=== PATIENT | female | born 1990 | race Caucasian/White ===

== ENCOUNTER → 2016-10-04 | Outpatient (CLI) | payer OTHER | LOC: CIMAGING 12:01 | PROVIDERS: ATTEND Family Medicine | DX: S62.637A Displaced fracture of distal phalanx of left little finger, initial encounter for closed fracture (principal) | CPT/HCPCS: 73140-PO ==

== ENCOUNTER 2017-04-18 20:23 | Observation (INO) | payer OTHER ==
--- NOTE | 2017-04-18 20:37 | EDPHY ---
H & P Time Seen by Provider: 04/18/17 20:33 HPI/ROS: 27-year-old female presents complaining of lower abdominal pain that began sometime last night, just kind of achy in nature. As the day progessed she had increasing pain of entire lower abdomen, and worse on the right. She complains of approx one week of daily diarrhea, watery. No prior abdominal surgery. She does have a history of ovarian cyst, she states this does not feel like the time she had a ruptured ovarian cyst. Review of systems As per HPI General no fever no chills no weakness HEENT no eye pain no eye discharge. No eye redness, no sore throat Respiratory no cough, no shortness of breath Cardiac no chest pain, no peripheral edema GI positive abdominal pain, pos diarrhea, no constipation,pos nausea, no vomiting no flank pain, no hematuria, no dysuria Musculoskeletal no myalgias, no joint pain Heme no easy bruising, no easy bleeding Endo no polyuria, no polydipsia Skin no rashes, no pruritus Neuro no syncope, no dizziness, no headaches Psych is no suicidal ideation, no homicidal ideation Past Medical/Surgical History: ovarian cysts Social History: alcohol socially no drug use Smoking Status: Current some day smoker Physical Exam: 27 yo F alert and oriented and in mod distress secondary to lower abd pain at, nc anicteric, eomi neck supple lungs cta bilat heart rapid rr abd slightly distended, bs quiet, diffuse lower abdominal ttp with guarding, rebound ext no cce skin no rash Constitutional: Initial Vital Signs Temperature (C) 36.5 C 04/18/17 20:34 Heart Rate 84 04/18/17 20:34 Respiratory Rate 18 04/18/17 20:34 Blood Pressure 118/78 04/18/17 20:34 O2 Sat (%) 99 04/18/17 20:34 O2 Delivery Mode Room Air Allergies/Adverse Reactions: No Known Allergies Allergy (Verified 04/18/17 20:33) Home Medications: Medication Instructions Recorded Adderall 07/18/09 Medical Decision Making - Diagnostics Imaging Results: Imaging Impressions Abdomen CT 04/18/17 21:08 Impression: 1. Mild thickening of the appendix, and a low-grade appendicitis is not excluded. 2. Right lower quadrant mesenteric adenitis. 3. Localized ileus versus enteritis in the lower central abdomen and pelvis with some associated free fluid. 4. Mild hepatomegaly. 5. There appears to be a 3.5 cm mildly complex right ovarian cyst, as well as a 1.5 cm left ovarian follicular cyst. This could be further evaluated with sonography, as clinically directed. Findings were discussed with Andreia Jason MD at 21:50, on 04/18/2017. ED Course/Re-evaluation: Pt seen and evaluated for acute lower abdominal pain. Labs elevated WBC 16 lactate nml ua nml ct abd with multiple findings thickened small bowel c/w enteritis scattered areas of free fluid borderline enlarged appendix 7.1 to 8.3 mm mesenteric nodes right ovarian cyst 3.5 cm us pelvis ordered to further evaluate right ovarian cyst, to rule out torsion Endorsed to Dr Wen at shift change pending Us results and transfer to [facility] to be admitted to hospitalist and to be seen by the surgery team. Discussed case with Dr Villalta, who requested admit to hospitalist and she will see patient in consult. Discussed case with the hospitalist Dr Guevara, who agreed to admit patient and will consult surgery. Imp Enteritis R/o appendicitis Plan Admit to [facility] - Data Points Laboratory Results: Laboratory Results 04/18/17 20:43 04/18/17 20:43 04/18/17 04/18/17 04/18/17 22:35 21:55 20:45 WBC RBC Hgb Hct MCV MCH MCHC RDW Plt Count MPV Neut % (Auto) Lymph % (Auto) [place] % (Auto) Eos % (Auto) Baso % (Auto) Nucleat RBC Rel Count Absolute Neuts (auto) Absolute Lymphs (auto) Absolute Monos (auto) Absolute Eos (auto) Absolute Basos (auto) Absolute Nucleated RBC Immature Gran % Immature Gran # VBG Lactic Acid 0.8 mmol/L mmol/L (0.7-2.1) Sodium Potassium Chloride Carbon Dioxide Anion Gap BUN Creatinine Estimated GFR Glucose Calcium Total Bilirubin AST ALT Alkaline Phosphatase Total Protein Albumin Lipase Beta HCG, Qual NEGATIVE Urine Color YELLOW Urine Appearance CLEAR Urine pH 6.0 (5.0-7.5) Ur Specific [place] 1.020 (1.002-1.030) Urine Protein NEGATIVE (NEGATIVE) Urine Ketones 1+ H (NEGATIVE) Urine Blood NEGATIVE (NEGATIVE) Urine Nitrate NEGATIVE (NEGATIVE) Urine Bilirubin NEGATIVE (NEGATIVE) Urine Urobilinogen 0.2 EU EU (0.2-1.0) Ur Leukocyte Esterase NEGATIVE (NEGATIVE) Urine Glucose NEGATIVE (NEGATIVE) 04/18/17 04/18/17 20:43 20:43 WBC 16.63 10^3/uL H 10^3/uL (3.80-9.50) RBC 4.80 10^6/uL 10^6/uL (4.18-5.33) Hgb 15.9 g/dL g/dL (12.6-16.3) Hct 44.4 % % (38.0-47.0) MCV 92.5 fL fL (81.5-99.8) MCH 33.1 pg pg (27.9-34.1) MCHC 35.8 g/dL g/dL (32.4-36.7) RDW 12.3 % % (11.5-15.2) Plt Count 298 10^3/uL 10^3/uL (150-400) MPV 8.4 fL L fL (8.7-11.7) Neut % (Auto) 83.0 % H % (39.3-74.2) Lymph % (Auto) 10.8 % L % (15.0-45.0) Carl[place] % (Auto) 4.9 % % (4.5-13.0) Eos % (Auto) 0.8 % % (0.6-7.6) Baso % (Auto) 0.2 % L % (0.3-1.7) Nucleat RBC Rel Count 0.0 % % (0.0-0.2) Absolute Neuts (auto) 13.81 10^3/uL H 10^3/uL (1.70-6.50) Absolute Lymphs (auto) 1.80 10^3/uL 10^3/uL (1.00-3.00) Absolute Monos (auto) 0.81 10^3/uL H 10^3/uL (0.30-0.80) Absolute Eos (auto) 0.13 10^3/uL 10^3/uL (0.03-0.40) Absolute Basos (auto) 0.03 10^3/uL 10^3/uL (0.02-0.10) Absolute Nucleated RBC 0.00 10^3/uL 10^3/uL (0-0.01) Immature Gran % 0.3 % % (0.0-1.1) Immature Gran # 0.05 10^3/uL 10^3/uL (0.00-0.10) VBG Lactic Acid Sodium 140 mEq/L mEq/L (134-144) Potassium 3.7 mEq/L mEq/L (3.5-5.2) Chloride 100 mEq/L mEq/L (97-110) Carbon Dioxide 24 mEq/l mEq/l (22-31) Anion Gap 16 mEq/L mEq/L (8-16) BUN 12 mg/dL mg/dL (7-23) Creatinine 0.8 mg/dL mg/dL (0.6-1.0) Estimated GFR > 60 Glucose 104 mg/dL H mg/dL (70-100) Calcium 9.7 mg/dL mg/dL (8.5-10.4) Total Bilirubin 1.7 mg/dL H mg/dL (0.1-1.4) AST 23 IU/L IU/L (14-46) ALT 36 IU/L IU/L (9-52) Alkaline Phosphatase 81 IU/L IU/L (38-126) Total Protein 7.0 g/dL g/dL (6.3-8.2) Albumin 4.4 g/dL g/dL (3.5-5.0) Lipase 39 IU/L IU/L (23-300) Beta HCG, Qual Urine Color Urine Appearance Urine pH Ur Specific [place] Urine Protein Urine Ketones Urine Blood Urine Nitrate Urine Bilirubin Urine Urobilinogen Ur Leukocyte Esterase Urine Glucose Medications Given: Discontinued Medications Hydromorphone HCl (Dilaudid) 1 mg IVP EDNOW ONE Stop: 04/18/17 21:54 Last Admin: 04/18/17 23:07 Dose: Not Given Hydromorphone HCl (Dilaudid) 1 mg IVP EDNOW ONE Stop: 04/18/17 21:54 Last Admin: 04/18/17 22:00 Dose: 1 mg Sodium Chloride (Ns) 1,000 mls @ 0 mls/hr IV ONCE ONE PRN Reason: Wide Open Stop: 04/18/17 20:53 Last Admin: 04/18/17 20:58 Dose: 1,000 mls Morphine Sulfate (Morphine) 4 mg IVP EDNOW ONE Stop: 04/18/17 20:53 Last Admin: 04/18/17 20:58 Dose: 4 mg Ondansetron HCl (Zofran) 4 mg IVP EDNOW ONE Stop: 04/18/17 20:53 Last Admin: 04/18/17 20:58 Dose: 4 mg Departure - Departure Referrals: Rafia Hickman MD [Primary Care Provider] - As per Instructions
[2017-04-18 20:47] LABS: % IMMATURE GRANULYOCYTES 0.3 % (0.0-1.1); ABSOLUTE IMMATURE GRANULOCYTES 0.05 10^3/uL (0.00-0.10); ADD DIFF? NO; ADD MORPH? NO; ADD SCAN? NO; ATYPICAL LYMPHOCYTE FLAG 0 (0-99); FRAGMENT RBC FLAG 0 (0-99); HEMATOCRIT 44.4 % (38.0-47.0); HEMOGLOBIN 15.9 g/dL (12.6-16.3); LEFT SHIFT FLG 0 (0-99); LIPEMIA HEMOLYSIS FLAG 90 (0-99); MEAN CELL HEMOGLOBIN 33.1 pg (27.9-34.1); MEAN CELL HEMOGLOBIN CONCENTR. 35.8 g/dL (32.4-36.7); MEAN CELL VOLUME 92.5 fL (81.5-99.8); MEAN PLATELET VOLUME 8.4 fL (8.7-11.7); PLATELET CLUMPS FLAG 0 (0-99); PLATELET COUNT 298 10^3/uL (150-400); RED CELL DISTRIBUTION WIDTH 12.3 % (11.5-15.2)
[2017-04-18] MEDS ORDERED: NS 1,000 ML IV ONE (20:52)
[2017-04-18] MEDS ORDERED: ONDANSETRON 4 MG/2 ML VIAL IVP ONE (20:52)
[2017-04-18 21:01] LABS: ALANINE AMINOTRANSFERASE 36 IU/L (9-52); ALBUMIN 4.4 g/dL (3.5-5.0); ALKALINE PHOSPHATASE 81 IU/L (38-126); ANION GAP 16 mEq/L (8-16); ASPARTATE AMINOTRANSFERASE 23 IU/L (14-46); BILIRUBIN,TOTAL 1.7 mg/dL (0.1-1.4); CALCIUM 9.7 mg/dL (8.5-10.4); CARBON DIOXIDE 24 mEq/l (22-31); CHLORIDE 100 mEq/L (97-110); CREATININE 0.8 mg/dL (0.6-1.0); GLOMERULAR FILTRATION RATE > 60; GLUCOSE 104 mg/dL (70-100); POTASSIUM 3.7 mEq/L (3.5-5.2); SODIUM 140 mEq/L (134-144)
[2017-04-18] MEDS ORDERED: IOPAMIDOL (ISOVUE-300) 100 ML BTL ONE (21:17)
[2017-04-18] MEDS ORDERED: HYDROmorphONE/DILAUDID 1 MG/ML INJ IVP ONE ×2 (21:53)
[2017-04-18 22:03] LABS: COLOR YELLOW; LEUKOCYTE ESTERASE,URINE NEGATIVE (NEGATIVE); NITRITE,URINE NEGATIVE (NEGATIVE)
[2017-04-18] MEDS ORDERED: ONDANSETRON DISINTEGRATING 4 MG TAB PO PRN (23:15)
[2017-04-18] MEDS ORDERED: ONDANSETRON 4 MG/2 ML VIAL IVP PRN (23:15)
[2017-04-18] MEDS ORDERED: ACETAMINOPHEN 325 MG TAB PO PRN (23:15)
[2017-04-18] MEDS ORDERED: KETOROLAC 30 MG/1 ML SDV IVP ONE (23:24)
--- NOTE | 2017-04-19 00:55 | PDGENHP ---
History and Physical - Chief Complaint Abdominal pain - History of Present Illness 27 yo F presents with one day of abdominal pain. Patient noted abdominal pain in her RLQ this morning. It went away in the middle of the day but then returned in greater intensity and she went to the ED for evaluation. She has prior history of ovarian cysts but she feels this pain is different and more intense. She also noted subjective fevers and chills today. She has had one loose stool daily for the last few days but denies any blood or melena. History Information - Allergies/Home Medication List Allergies/Adverse Reactions: No Known Allergies Allergy (Verified 04/18/17 20:33) Home Medications: Adderall 07/18/09 [Last Taken 07/18/09 08:00 30 MG ER] I have personally reviewed and updated: family history, medical history - Past Medical History Additional medical history: ADHD - Family History Additional family history: Denies family history - Social History Smoking Status: Current some day smoker Review of Systems Review of Systems: ROS: 10pt was reviewed & negative except for what was stated in HPI & below Physical Exam Physical Exam: Temp Pulse Resp BP Pulse Ox 36.8 C 82 18 111/68 97 04/19/17 00:36 04/19/17 00:36 04/19/17 00:36 04/19/17 00:36 04/19/17 00:36 Constitutional: appears nourished, uncomfortable Eyes: PERRL, EOMI Ears, Nose, Mouth, Throat: moist mucous membranes, no oral mucosal ulcers Cardiovascular: regular rate and rhythym, no murmur, rub, or gallop Respiratory: no respiratory distress, clear to auscultation Gastrointestinal: tenderness (RLQ), No guarding, No rebound, No distension Skin: warm, normal color Musculoskeletal: full muscle strength, no muscle tenderness Neurologic: AAOx3, CN II-XII Intact Psychiatric: interacting appropriately, not anxious Lab Data & Imaging Review 04/18/17 20:43 04/18/17 20:43 WBC 16.63 10^3/uL (3.80-9.50) H 04/18/17 20:43 RBC 4.80 10^6/uL (4.18-5.33) 04/18/17 20:43 Hgb 15.9 g/dL (12.6-16.3) 04/18/17 20:43 Hct 44.4 % (38.0-47.0) 04/18/17 20:43 MCV 92.5 fL (81.5-99.8) 04/18/17 20:43 MCH 33.1 pg (27.9-34.1) 04/18/17 20:43 MCHC 35.8 g/dL (32.4-36.7) 04/18/17 20:43 RDW 12.3 % (11.5-15.2) 04/18/17 20:43 Plt Count 298 10^3/uL (150-400) 04/18/17 20:43 MPV 8.4 fL (8.7-11.7) L 04/18/17 20:43 Neut % (Auto) 83.0 % (39.3-74.2) H 04/18/17 20:43 Lymph % (Auto) 10.8 % (15.0-45.0) L 04/18/17 20:43 [place] % (Auto) 4.9 % (4.5-13.0) 04/18/17 20:43 Eos % (Auto) 0.8 % (0.6-7.6) 04/18/17 20:43 Baso % (Auto) 0.2 % (0.3-1.7) L 04/18/17 20:43 Nucleat RBC Rel Count 0.0 % (0.0-0.2) 04/18/17 20:43 Absolute Neuts (auto) 13.81 10^3/uL (1.70-6.50) H 04/18/17 20:43 Absolute Lymphs (auto) 1.80 10^3/uL (1.00-3.00) 04/18/17 20:43 Absolute Monos (auto) 0.81 10^3/uL (0.30-0.80) H 04/18/17 20:43 Absolute Eos (auto) 0.13 10^3/uL (0.03-0.40) 04/18/17 20:43 Absolute Basos (auto) 0.03 10^3/uL (0.02-0.10) 04/18/17 20:43 Absolute Nucleated RBC 0.00 10^3/uL (0-0.01) 04/18/17 20:43 Immature Gran % 0.3 % (0.0-1.1) 04/18/17 20:43 Immature Gran # 0.05 10^3/uL (0.00-0.10) 04/18/17 20:43 VBG Lactic Acid 0.8 mmol/L (0.7-2.1) 04/18/17 22:35 Sodium 140 mEq/L (134-144) 04/18/17 20:43 Potassium 3.7 mEq/L (3.5-5.2) 04/18/17 20:43 Chloride 100 mEq/L (97-110) 04/18/17 20:43 Carbon Dioxide 24 mEq/l (22-31) 04/18/17 20:43 Anion Gap 16 mEq/L (8-16) 04/18/17 20:43 BUN 12 mg/dL (7-23) 04/18/17 20:43 Creatinine 0.8 mg/dL (0.6-1.0) 04/18/17 20:43 Estimated GFR > 60 04/18/17 20:43 Glucose 104 mg/dL (70-100) H 04/18/17 20:43 Calcium 9.7 mg/dL (8.5-10.4) 04/18/17 20:43 Total Bilirubin 1.7 mg/dL (0.1-1.4) H 04/18/17 20:43 AST 23 IU/L (14-46) 04/18/17 20:43 ALT 36 IU/L (9-52) 04/18/17 20:43 Alkaline Phosphatase 81 IU/L (38-126) 04/18/17 20:43 Total Protein 7.0 g/dL (6.3-8.2) 04/18/17 20:43 Albumin 4.4 g/dL (3.5-5.0) 04/18/17 20:43 Lipase 39 IU/L (23-300) 04/18/17 20:43 Beta HCG, Qual NEGATIVE 04/18/17 20:45 Urine Color YELLOW 04/18/17 21:55 Urine Appearance CLEAR 04/18/17 21:55 Urine pH 6.0 (5.0-7.5) 04/18/17 21:55 Ur Specific [place] 1.020 (1.002-1.030) 04/18/17 21:55 Urine Protein NEGATIVE (NEGATIVE) 04/18/17 21:55 Urine Ketones 1+ (NEGATIVE) H 04/18/17 21:55 Urine Blood NEGATIVE (NEGATIVE) 04/18/17 21:55 Urine Nitrate NEGATIVE (NEGATIVE) 04/18/17 21:55 Urine Bilirubin NEGATIVE (NEGATIVE) 04/18/17 21:55 Urine Urobilinogen 0.2 EU (0.2-1.0) 04/18/17 21:55 Ur Leukocyte Esterase NEGATIVE (NEGATIVE) 04/18/17 21:55 Urine Glucose NEGATIVE (NEGATIVE) 04/18/17 21:55 Imaging Review: CT with possible appendicitis, RLQ mesenteric adenitis, and possible lower abdominal enteritis. Pelvic U/S showing R-sided hemorrhagic cysts and associated free fluid. Assessment & Plan Assessment: 27 yo F presents with abdominal pain. Plan: 1. Abdominal pain - Present x1 day, associated with subjective fevers and chills , and worst in RLQ. Differential for this includes appendicitis vs. ovarian cysts vs. enteritis. She is having loose stools but only once daily. - Maintain NPO, mIVF, pain control - Surgery service consulted for consideration of appendicitis - Will treat conservatively without antibiotics currently unless surgical service requests otherwise Diet - NPO Code - Full Ppx - Low risk Dispo - Admit to observation status
[2017-04-19] MEDS: D5W 1/2 NS 1,000 ML IV SCH ×2 (01:03→10:22)
[2017-04-19 03:28] VITALS: RESP 16
[2017-04-19 04:54] LABS: % IMMATURE GRANULYOCYTES 0.5 % (0.0-1.1); ABSOLUTE IMMATURE GRANULOCYTES 0.07 10^3/uL (0.00-0.10); ADD DIFF? NO; ADD MORPH? NO; ADD SCAN? NO; ATYPICAL LYMPHOCYTE FLAG 0 (0-99); FRAGMENT RBC FLAG 0 (0-99); HEMATOCRIT 37.7 % (38.0-47.0); HEMOGLOBIN 13.5 g/dL (12.6-16.3); LEFT SHIFT FLG 10 (0-99); LIPEMIA HEMOLYSIS FLAG 90 (0-99); MEAN CELL HEMOGLOBIN 33.6 pg (27.9-34.1); MEAN CELL HEMOGLOBIN CONCENTR. 35.8 g/dL (32.4-36.7); MEAN CELL VOLUME 93.8 fL (81.5-99.8); MEAN PLATELET VOLUME 8.6 fL (8.7-11.7); PLATELET CLUMPS FLAG 0 (0-99); PLATELET COUNT 234 10^3/uL (150-400); RED BLOOD CELL COUNT 4.02 10^6/uL (4.18-5.33); RED CELL DISTRIBUTION WIDTH 12.3 % (11.5-15.2)
[2017-04-19 05:17] LABS: ANION GAP 7 mEq/L (8-16); CALCIUM 8.6 mg/dL (8.5-10.4); CARBON DIOXIDE 26 mEq/l (22-31); CHLORIDE 104 mEq/L (97-110); CREATININE 0.7 mg/dL (0.6-1.0); GLOMERULAR FILTRATION RATE > 60; GLUCOSE 119 mg/dL (70-100); POTASSIUM 4.5 mEq/L (3.5-5.2); SODIUM 137 mEq/L (134-144)
--- NOTE | 2017-04-19 08:12 | GCON ---
[f rep st] CONSULTATION DATE OF CONSULTATION: 04/19/2017 CHIEF COMPLAINT: Right lower quadrant pain. HISTORY OF PRESENT ILLNESS: Ian is a 27-year-old woman who had vague symptoms of not feeling well 4 days prior to admission. It then escalated on 04/18, achy nature. It then became worse on the rig ht. She has had 1 week of watery diarrhea. PAST MEDICAL HISTORY: Ovarian cyst. PAST SURGICAL HISTORY: None. SOCIAL HISTORY: She does not use drugs. She does use tobacco products and she does drink alcohol so cially. REVIEW OF SYSTEMS: 10-point review of systems negative except per HPI. FAMILY HISTORY: Her sister was thought to have appendicitis but then realized it was due to Strep. PHYSICAL EXAMINATION: VITALS: Reviewed. She is afebrile. GENERAL: Pleasant, well-nourished, well- groomed woman, lying on bed. Family at bedside. HEENT: Normocephalic. No gross hearing deficits. Mucous membranes moist. Pupils equal and round. No scleral icterus. LUNGS: Clear to auscultation bilaterally. No increased work of breathing. CARDIAC: Regular rate. ABDOMEN: Slight distention. Bowel sounds are present. She is tender focally in the lower right quadrant. She does have a posi tive Rovsing sign. SKIN: Warm and dry. PSYCHIATRIC: Mood and affect normal. NEUROLOGIC: Grossly i ntact. LABORATORY RESULTS: Her white count at urgent care was 16.63 with a differential of 83 and today is 15.27 with 87.6% neutrophils. I personally reviewed her CT scan and can visualize the appendix. The re are no secondary appendiceal changes. It is slightly enlarged. She also has a ruptured ovarian c yst and mesenteric adenitis. She subsequently had a pelvic ultrasound obtained which showed a couple of hemorrhagic cystic structures associated with the right ovary and the left ovary is smaller. Free fluid in the cul-de-sac. IMPRESSION/PLAN: Ian Bob is a 27-year-old with history of 1 week watery diarrhea, right lower quadrant pain. Her CT scan is a bit difficult to interpret as the appendix is slightly enlarged, sh e has associated mesenteric adenitis, some thickening of the bowel and the ovarian cyst. All of thes e things could be contributing to her abdominal pain. I am concerned that her white count is still e levated. However, I do not think that her appendix is solely responsible for her abdominal pain. It is also interesting that she has thickening of the mesenteric fat on the left pericolic gutter. She also has some obvious lymph nodes in the right lower quadrant. We discussed repeat ultrasound to se e if the appendix is enlarging. We discussed watching and we also briefly discussed going to the ope rating room. I do not feel like there was enough evidence to go to the operating room right now, how ever, this is still within the differential. Please do not hesitate to reach out to me if she would like to proceed with operating room. /[id number]/MODL
--- NOTE | 2017-04-19 11:02 | ASMTCASEMG ---
Living Arrangements What is your living Answers: Alone arrangement? Who do you live with? Type Of Residence What kind of residence do Answers: Apartment you live in? Discharge Plan Comments Coordination Status Comments Notes: Pt is a 27 y/o female admitted for low abdominal pain. Surgery has been consulted. Pt will most likely d/c independent without any needs when medically stable. CM available for d/c needs. Date Signed: 04/19/2017 11:02 AM Electronically Signed By:CARMEN Wilks
[2017-04-19] MEDS: ADDERALL 20 MG TAB PO SCH (11:04)
[2017-04-19] MEDS: KETOROLAC 15 MG/1 ML SDV IVP SCH ×2 (12:48→17:24)
--- NOTE | 2017-04-19 13:03 | HOSPPROG ---
Hospitalist Progress Note Assessment/Plan: 27 yo F presents with abdominal pain. D/W Dr Villalta. Plan: 1. Abdominal pain - Present x1 day, associated with subjective fevers and chills, and worst in RLQ. unclear etiol was NPO hungry now, regualr diet mIVF, pain control D/W Surgery Will treat conservatively without antibiotics currently unless surgical service requests otherwise repeat US ordered reviewed with Dr Villalta cont conservative care Diet - regular Code - Full Ppx - Low risk Dispo - Admit to observation status >35 min spent in care and coordination Subjective: Still having some abd pain. No diarrhea. Objective: Vital Signs Temp Pulse Resp BP Pulse Ox 36.8 C 92 16 102/59 L 97 04/19/17 11:07 04/19/17 11:07 04/19/17 11:07 04/19/17 11:07 04/19/17 11:07 Laboratory Results 04/19/17 04:25 04/19/17 04:25 04/18/17 04/19/17 04/20/17 05:59 05:59 05:59 Intake Total 1000 Balance 1000 - Physical Exam Constitutional: appears nourished, uncomfortable Eyes: PERRL, anicteric sclera, EOMI Ears, Nose, Mouth, Throat: moist mucous membranes, hearing normal, ears appear normal Cardiovascular: regular rate and rhythym, No JVD, No edema Respiratory: no respiratory distress, no rales or rhonchi, reduced air movement Gastrointestinal: normoactive bowel sounds, tenderness, No ascites, No guarding Skin: warm, normal color, No erythema Musculoskeletal: normal joint ROM, no joint effusions, generalized weakness Neurologic: AAOx3 Psychiatric: interacting appropriately, not anxious, not encephalopathic, thought process linear ICD10 Worksheet Patient Problems: Problems Problem Status Onset Abdominal pain Acute - ICD10 Problem Qualifiers (1) Abdominal pain Qualifiers: Abdominal location: generalized Qualified Code(s): R10.84 - Generalized abdominal pain
[2017-04-19] MEDS: OXYCODONE/APAP 5/325 TAB PO PRN ×3 (13:37→20:44)
[2017-04-20] MEDS: KETOROLAC 15 MG/1 ML SDV IVP SCH ×2 (00:13→05:32)
[2017-04-20] MEDS: OXYCODONE/APAP 5/325 TAB PO PRN ×2 (01:04→05:32)
[2017-04-20] MEDS: D5W 1/2 NS 1,000 ML IV SCH (05:32)
[2017-04-20 07:33] VITALS: BP 88/47; PULSE 67; TEMP 97.5; O2SAT 98
[2017-04-20 08:21] LABS: % IMMATURE GRANULYOCYTES 0.3 % (0.0-1.1); ABSOLUTE IMMATURE GRANULOCYTES 0.02 10^3/uL (0.00-0.10); ADD DIFF? NO; ADD MORPH? NO; ADD SCAN? NO; ATYPICAL LYMPHOCYTE FLAG 10 (0-99); FRAGMENT RBC FLAG 0 (0-99); HEMATOCRIT 36.2 % (38.0-47.0); HEMOGLOBIN 12.1 g/dL (12.6-16.3); LEFT SHIFT FLG 0 (0-99); LIPEMIA HEMOLYSIS FLAG 80 (0-99); MEAN CELL HEMOGLOBIN 32.2 pg (27.9-34.1); MEAN CELL HEMOGLOBIN CONCENTR. 33.4 g/dL (32.4-36.7); MEAN CELL VOLUME 96.3 fL (81.5-99.8); MEAN PLATELET VOLUME 8.7 fL (8.7-11.7); PLATELET CLUMPS FLAG 0 (0-99); PLATELET COUNT 188 10^3/uL (150-400); RED BLOOD CELL COUNT 3.76 10^6/uL (4.18-5.33); RED CELL DISTRIBUTION WIDTH 12.7 % (11.5-15.2)
[2017-04-20] MEDS ORDERED: ADDERALL 20 MG TAB PO SCH (09:00)
[2017-04-20] MEDS: ADDERALL 20 MG TAB PO SCH (10:35)
--- NOTE | 2017-04-20 12:47 | SOAPPROG ---
SOAP Progress Note Assessment/Plan: Assessment: Much improved today and WBC normal Likely severe meseneric adenitis and ruptured ovarian cyst Gave my business card in the event symptoms recur S: Feeling well. Tolerating breakfast O: Abdomen soft, minimal tenderness and non distended Plan: 04/20/17 12:46 Objective: Vital Signs Temp Pulse Resp BP Pulse Ox 36.4 C 67 16 88/47 L 98 04/20/17 07:30 04/20/17 07:30 04/20/17 07:30 04/20/17 07:30 04/20/17 07:30 Laboratory Results 04/20/17 08:11 04/19/17 04:25 04/19/17 04/20/17 04/21/17 05:59 05:59 05:59 Intake Total 1000 2837 Balance 1000 2837 ICD10 Worksheet Patient Problems: Problems Problem Status Onset Abdominal pain Acute
--- NOTE | 2017-04-20 13:42 | GDS ---
[f rep st] DISCHARGE SUMMARY DISCHARGE DIAGNOSES: 1. Acute abdominal pain. 2. Diarrhea. CONSULTATIONS: Dr. Villalta of surgery. STUDIES AND PROCEDURES DONE: 1. CT of the abdomen. 2. Pelvic ultrasound. 3. Abdominal ultrasound. PHYSICAL EXAM: GENERAL: The patient is alert. VITAL SIGNS: Afebrile at 36.4, pulse is 67, respira tory rate 16, blood pressure is 88/47, she is saturating 98% on room air. I have seen and evaluated the patient on the day of discharge. HOSPITAL COURSE: The patient is a 27-year-old female who presented to the emergency room with compla ints of abdominal pain. During this hospitalization, she was evaluated with a CT of her abdomen, as well as 2 separate ultrasounds. The etiology of her abdominal pain is unclear; however, it has resol abdoulaye. She did receive a consultation from Dr. Villalta of surgery to rule out appendicitis. The patient did have some leukocytosis and stated fever and chills. Again, her pain has completely resolved. S he is tolerating a regular diet, and she will follow up outside the hospital. She has been educated regarding the hemorrhagic cysts associated with the right ovary, as well as the free fluid present in her pelvic cul-de-sac. It has been recommended that she receive a followup ultrasound in 8-12 weeks , unless her symptoms do not continue to improve. She is in agreement with this plan. DISCHARGE MEDICATIONS: Please refer to EMR form. I have not adjusted the patient's previously presc ribed home medications. She has been provided a prescription for Percocet p.r.n. FOLLOWUP: Again, will be with her primary care physician, Dr. Rafia Hickman. /[id number]/[facility]
--- NOTE | 2017-04-20 15:09 | ASDISCHSUM ---
Discharge Information Plan Status:Home with No Needs Medically Cleared to Leave:04/19/2017 Discharge Date:04/20/2017 11:10 AM CM D/C Disposition: ADT D/C Disposition:Home, Routine, Self-Care Projected Discharge Date:04/20/2017 12:00 AM Transportation at D/C: Discharge Delay Reason: Follow-Up Date:04/20/2017 12:00 AM Discharge Slot: Final Diagnosis: Placement Information Patient Contact Information Contact Name:RABIA Relationship:Mother Address:[address] [place] [address] City:[place] Alternate Phone: [facility]/Zip Code:[place] [address] Email: Financial Information Financial Class:[facility] Primary Plan Desc:[facility] Primary Plan Number:[id number] Secondary Plan Desc: Secondary Plan Number: Assessment Information [facility] Initial CM Assessment Living Arrangements What is your living Answers: Alone arrangement? Who do you live with? Type Of Residence What kind of residence do Answers: Apartment you live in? Discharge Plan Comments Coordination Status Comments Notes: Pt is a 27 y/o female admitted for low abdominal pain. Surgery has been consulted. Pt will most likely d/c independent without any needs when medically stable. CM available for d/c needs. Date Signed: 04/19/2017 11:02 AM Electronically Signed By:CARMEN Wilks Intervention Information
== END 2017-04-20 11:10 | disposition home or self-care (01) ==
LOC: CED 20:23 → CEDHOLD 23:11 → F3E 04-19 00:34
PROVIDERS: ADMIT Student in an Organized Health Care Education/Training Program; ATTEND Hospitalist
DX: R10.31 Right lower quadrant pain (principal); N83.201 Unspecified ovarian cyst, right side; N83.202 Unspecified ovarian cyst, left side; I88.0 Nonspecific mesenteric lymphadenitis; F17.210 Nicotine dependence, cigarettes, uncomplicated
CPT/HCPCS: 74177; 76705; 76856; G0378; 80048-PO; 80053-PO; 81003-PO; 83605-PO; 83690-PO; 84703-PO; 85025-PO; J1170; J1885; J2405; Q9967